=== PATIENT | female | born 1970 | race Caucasian/White ===

== ENCOUNTER 2017-08-23 02:24 | Emergency (ER) | payer OTHER ==
[~2017-08-23] VITALS: Ht 175.3 cm; Wt 124.3 kg
[~2017-08-23 02:24] MED LIST: ACCUNEB SO1.25 MG/1; ACETAMINOPHEN-1 EAC1 PO; ALBUTEROL INH INH; ALBUTEROL2.5 MG/31 IH; AMOXICILLIN/POTASSIU; AMOXICILLIN500 M1 PO; APAP/CODEINE ELI5 M1 PO; ATIVAN1 MG PO; ATROVENT15 ML NS; AUGMENTIN 875875 MG PO; AURALGAN EAR DR14 ML OT; AZITHROMYCIN 2250 MG PO; BACLOFEN 10MG T10 MG PO; BACTRIM DS TAB1 EACH PO; BENADRYL25 MG PO; BUSPIRONE HCL10 MG; BUTALB-APAP-CA1 EACH PO; CARISOPRODOL 3350 MG; CARISOPRODOL 3350 MG PO; CATAPRES-TTS 10.1 M2 TD; CELEBREX 200 M200 MG PO; CELEXA20 MG PO; CELEXA40 MG PO; CLONAZEPAM 1 MG1 M1 PO; DICLOFENAC SODI75 MG PO; DIFLUCAN150 MG PO; DOXYCYCLINE 10100 MG PO; EXALGO16 MG PO; FIORICET 50-321 EACH PO; FLAGYL500 MG PO; FLEXERIL PO; FLONASE NS; HYDROCODON-ACE1 EAC7; HYDROCODONE-AC120 ML PO; HYDROCODONE-AP1 EA14; HYDROCODONE-AP1 EAC6 PO; HYDROCODONE-APA1 TA1; IBUPROFEN 600600 M1 PO; IBUPROFEN 800800 M1 PO; IBUPROFEN 800800 MG PO; LOESTRIN 24 FE1 EACH PO; LORTAB 5 MG/5001 TA1 PO; MAXALT MLT10 MG PO; MEDROLDOSEPACK PO; MIDRIN CAPSULE1 CAP; MIRENA1 EACH IY; MS CONTIN 60 MG60 MG; MUCINEX22 ML; MULTIVITAMINS1 EAC7 PO; NAPROSYN500 MG PO; NORCO 5-325 TA1 EAC1 PO; NORCO 5-325 TA1 EACH PO; NORCO 7.5-3251 EACH; OPANA ER30 MG PO; OPANA5 MG PO; OTHER MISCELL; PHENAZOPYRIDIN200 M2 PO; PHENERGAN 25 MG25 M1; PHENERGAN 25 MG25 M1 PO; PHENERGAN25 M1 RECTAL; PREDNISONE 20 M20 M1 PO; PREDNISONE 20 M20 MG PO; PREDNISONE50 MG PO; PROMETHAZINE HC25 M1 PO; RELPAX40 MG; ROBAXIN500 MG PO; SINGULAIR; SOMA250 MG PO; SYMBICORT160 MCG/4.; SYMBICORT80 MCG/4.1 INH; TIZANIDINE HCL4 MG PO; TOPAMAX 100 MG100 MG; TOPAMAX 100 MG100 MG PO; TOPAMAX100 MG PO; TOPAMAX200 MG PO; TORADOL 10 MG T10 MG PO; TUSSIONEX PENN473 ML PO; VENTOLIN HFA 1818 GM; VICODIN 5-5001 EACH PO; XANAX 0.25 MG0.25 MG PO; XANAX 0.5 MG0.5 M1; XANAX 0.5 MG0.5 MG PO; ZANAFLEX4 MG PO; ZOFRAN ODT4 MG PO; ZOFRAN ODT4 MG SUBLING; ZOMIG2.5 M1 NS; ZPAK PO; [UNRECOGNIZED DRUG - OTHER] PO
[2017-08-23 02:35] VITALS: BP 152/93
[2017-08-23] MEDS ORDERED: PHENERGAN 25 MG25 M1 PO (02:38)
[2017-08-23] MEDS ORDERED: QVAR8.7 G1 INH (02:38)
[2017-08-23] MEDS ORDERED: CELEXA40 MG PO (02:38)
[2017-08-23] MEDS ORDERED: REQUIP0.5 MG PO (02:39)
[2017-08-23] MEDS ORDERED: ALORA1 EAC3 TOP (02:40)
== END 2017-08-23 03:04 | disposition left against medical advice (07) ==
LOC: M.ERS 02:24
DX: R51 Headache (principal); J45.909 Unspecified asthma, uncomplicated; M79.7 Fibromyalgia; F32.9 Major depressive disorder, single episode, unspecified; F17.210 Nicotine dependence, cigarettes, uncomplicated; Z90.721 Acquired absence of ovaries, unilateral; Z88.1 Allergy status to other antibiotic agents; Z88.6 Allergy status to analgesic agent

== ENCOUNTER → 2017-09-01 | Outpatient (CLI) | payer OTHER ==
[~2017-09-01] MED LIST changes: +ALORA1 EAC3 TOP; +QVAR8.7 G1 INH; +REQUIP0.5 MG PO
== END ==
LOC: M.RAD 15:16
DX: Z12.31 Encounter for screening mammogram for malignant neoplasm of breast (principal); M50.322 Other cervical disc degeneration at C5-C6 level; G44.209 Tension-type headache, unspecified, not intractable; V89.2XXA Person injured in unspecified motor-vehicle accident, traffic, initial encounter; Y93.89 Activity, other specified; Y92.89 Other specified places as the place of occurrence of the external cause; Y99.8 Other external cause status

== ENCOUNTER 2018-12-08 18:35 | Emergency (ER) | payer OTHER ==
[~2018-12-08] VITALS: Ht 175.3 cm; Wt 124.3 kg
[~2018-12-08 18:35] MED LIST changes: +CLARITIN10 MG PO; +IMITREX100 MG PO; +RANITIDINE 150150 MG PO; +REGLAN10 MG PO; +SINGULAIR 10 MG10 M1 PO; +SUMATRIPTAN
[2018-12-08] MEDS ORDERED: PHENERGAN 25 MG25 M1 PO (19:25)
[2018-12-08 19:56] VITALS: BP 133/62
== END 2018-12-08 19:56 | disposition home or self-care (01) ==
LOC: M.ERS 18:35
DX: G43.009 Migraine without aura, not intractable, without status migrainosus (principal); J45.909 Unspecified asthma, uncomplicated; M79.7 Fibromyalgia; F41.9 Anxiety disorder, unspecified; F32.9 Major depressive disorder, single episode, unspecified; F17.210 Nicotine dependence, cigarettes, uncomplicated; Z90.721 Acquired absence of ovaries, unilateral; Z90.710 Acquired absence of both cervix and uterus; Z88.5 Allergy status to narcotic agent; Z88.8 Allergy status to other drugs, medicaments and biological substances; Z88.1 Allergy status to other antibiotic agents

== ENCOUNTER 2018-12-11 23:35 | Emergency (ER) | payer OTHER ==
[~2018-12-11] VITALS: Ht 175.3 cm; Wt 124.3 kg
[2018-12-12 01:40] VITALS: BP 149/73
== END 2018-12-12 01:46 | disposition home or self-care (01) ==
LOC: M.ERS 23:35
DX: G43.909 Migraine, unspecified, not intractable, without status migrainosus (principal); J45.909 Unspecified asthma, uncomplicated; M79.7 Fibromyalgia; F32.9 Major depressive disorder, single episode, unspecified; F41.9 Anxiety disorder, unspecified; F17.210 Nicotine dependence, cigarettes, uncomplicated; Z88.1 Allergy status to other antibiotic agents; Z88.6 Allergy status to analgesic agent; Z88.8 Allergy status to other drugs, medicaments and biological substances; Z90.49 Acquired absence of other specified parts of digestive tract; Z90.721 Acquired absence of ovaries, unilateral

== ENCOUNTER 2018-12-24 21:26 | Emergency (ER) | payer OTHER ==
[~2018-12-24] VITALS: Ht 175.3 cm; Wt 124.3 kg
[2018-12-24] MEDS ORDERED: CELEXA40 MG PO (21:42)
[2018-12-24 22:16] LABS: ABSOLUTE BASOPHILS 0.1 thou/uL (0.0-0.2); ABSOLUTE EOSINOPHILS 0.7 thou/uL (0.0-0.7); ABSOLUTE LYMPHOCYTES 3.7 thou/uL (0.8-5.3); ABSOLUTE MONOCYTES 0.6 thou/uL (0.0-1.2); ABSOLUTE NEUTROPHILS 5.3 thou/uL (1.6-8.1); BASOPHILS 0.8 %; EOSINOPHILS 6.4 %; HEMATOCRIT 40.5 % (37.0-47.0); HEMOGLOBIN 13.4 gm/dL (12.0-15.0); LYMPHOCYTES 35.9 %; MCH 29.3 pg (26.0-34.0); MCHC 33.2 g/dL (28.0-37.0); MCV 88.2 fL (80.0-100.0); MONOCYTES 5.4 %; MPV 8.7 fl. (7.2-11.1); NUCLEATED RBCS 0 /100WBC; PLATELET COUNT* 187 thou/uL (150-400); POLYS 51.5 %; RBC 4.59 mil/uL (4.20-5.00); RDW-CV 14.6 % (10.5-14.5); WBC 10.2 thou/uL (4.0-11.0)
[2018-12-24 22:19] LABS: URINE BILIRUBIN NEGATIVE (Negative); URINE BLOOD NEGATIVE (Negative); URINE CLARITY CLEAR; URINE COLOR YELLOW; URINE GLUCOSE-RANDOM NEGATIVE (Negative); URINE KETONES NEGATIVE (Negative); URINE LEUKOCYTES-REFLEX NEGATIVE (Negative); URINE NITRITE-REFLEX NEGATIVE (Negative); URINE PROTEIN 1+ (Negative); URINE SPECIFIC GRAVITY >= 1.030 (1.005-1.030); URINE UROBILINOGEN 0.2 E.U./dl (0.2-1.0)
[2018-12-24 22:23] LABS: ANION GAP 10 mmol/L (7-16); BUN 16 mg/dL (7-18); CALCIUM 8.8 mg/dL (8.5-10.1); CHLORIDE 105 mmol/L (98-107); CO2 23 mmol/L (21-32); CREATININE 1.1 mg/dL (0.6-1.3); GLUCOSE 92 mg/dL (70-99); POTASSIUM 3.7 mmol/L (3.5-5.1); SODIUM 138 mmol/L (136-145)
[2018-12-24 22:32] LABS: ALBUMIN 3.5 g/dL (3.4-5.0); ALKALINE PHOSPHATASE 87 U/L (46-116); LIPASE 81 U/L (73-393); SGOT 7 U/L (15-37); SGPT 8 U/L (30-65); TOTAL BILIRUBIN 0.4 mg/dL (<0.1-1.0); TOTAL PROTEIN 7.3 g/dL (6.4-8.2); TROPONIN-I LEVEL <0.06 ng/mL (<0.06)
[2018-12-24] MEDS ORDERED: NORCO 5-325 TA1 EAC1 PO (23:32)
[2018-12-24] MEDS ORDERED: DIFLUCAN150 MG PO (23:32)
[2018-12-24 23:40] VITALS: BP 156/87
--- NOTE | 2018-12-25 11:51 | EKG ---
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
== END 2018-12-24 23:43 | disposition home or self-care (01) ==
LOC: M.ERS 21:26
PROVIDERS: Family Medicine
DX: R10.9 Unspecified abdominal pain (principal); F41.9 Anxiety disorder, unspecified; F32.9 Major depressive disorder, single episode, unspecified; M79.7 Fibromyalgia; J45.909 Unspecified asthma, uncomplicated; G43.909 Migraine, unspecified, not intractable, without status migrainosus; F17.210 Nicotine dependence, cigarettes, uncomplicated; Z98.890 Other specified postprocedural states; Z90.710 Acquired absence of both cervix and uterus; Z90.711 Acquired absence of uterus with remaining cervical stump; Z88.1 Allergy status to other antibiotic agents; Z88.6 Allergy status to analgesic agent; Z88.8 Allergy status to other drugs, medicaments and biological substances

== ENCOUNTER 2019-01-13 14:37 | Emergency (ER) | payer OTHER ==
[~2019-01-13] VITALS: Ht 175.3 cm; Wt 124.3 kg
[~2019-01-13 14:37] MED LIST changes: +REQUIP 1 MG TABL1 M1 PO; -REQUIP0.5 MG PO
[2019-01-13] MEDS ORDERED: SINGULAIR 10 MG10 M1 PO (14:57)
[2019-01-13] MEDS ORDERED: IBUPROFEN 600600 M1 PO (14:57)
[2019-01-13] MEDS ORDERED: CYMBALTA30 MG PO (14:57)
[2019-01-13 15:31] VITALS: BP 132/86
== END 2019-01-13 15:35 | disposition left against medical advice (07) ==
LOC: M.ERS 14:37
DX: G43.909 Migraine, unspecified, not intractable, without status migrainosus (principal); J45.909 Unspecified asthma, uncomplicated; M79.7 Fibromyalgia; F17.210 Nicotine dependence, cigarettes, uncomplicated; Z90.49 Acquired absence of other specified parts of digestive tract; Z90.710 Acquired absence of both cervix and uterus; Z88.1 Allergy status to other antibiotic agents; Z88.6 Allergy status to analgesic agent; Z88.8 Allergy status to other drugs, medicaments and biological substances

== ENCOUNTER 2019-06-02 01:58 | Emergency (ER) | payer OTHER ==
[~2019-06-02] VITALS: Ht 175.3 cm; Wt 107.0 kg
[~2019-06-02 01:58] MED LIST changes: +CYMBALTA30 MG PO
[2019-06-02] MEDS ORDERED: PERCOCET 10-321 EAC1 PO (02:13)
[2019-06-02 02:52] LABS: URINE BILIRUBIN NEGATIVE (Negative); URINE BLOOD NEGATIVE (Negative); URINE CLARITY CLEAR; URINE COLOR YELLOW; URINE GLUCOSE-RANDOM NEGATIVE (Negative); URINE KETONES NEGATIVE (Negative); URINE LEUKOCYTES-REFLEX NEGATIVE (Negative); URINE NITRITE-REFLEX NEGATIVE (Negative); URINE PROTEIN NEGATIVE (Negative); URINE SPECIFIC GRAVITY <= 1.005 (1.005-1.030); URINE UROBILINOGEN 0.2 E.U./dl (0.2-1.0)
[2019-06-02 03:11] LABS: AMP/METHAMP Negative (Negative); BARBITURATES Negative (Negative); BENZODIAZEPINES POSITIVE (Negative); COCAINE Negative (Negative); METHADONE Negative (Negative); OPIATES Negative (Negative); PCP Negative (Negative); THC Negative (Negative)
[2019-06-02 03:18] LABS: ABSOLUTE BASOPHILS 0.1 thou/uL (0.0-0.2); ABSOLUTE EOSINOPHILS 0.3 thou/uL (0.0-0.7); ABSOLUTE LYMPHOCYTES 3.3 thou/uL (0.8-5.3); ABSOLUTE MONOCYTES 0.6 thou/uL (0.0-1.2); ABSOLUTE NEUTROPHILS 5.2 thou/uL (1.6-8.1); BASOPHILS 0.9 %; EOSINOPHILS 2.9 %; HEMATOCRIT 39.6 % (37.0-47.0); HEMOGLOBIN 13.5 gm/dL (12.0-15.0); LYMPHOCYTES 34.9 %; MCH 30.7 pg (26.0-34.0); MCHC 34.2 g/dL (28.0-37.0); MCV 89.8 fL (80.0-100.0); MONOCYTES 6.4 %; NUCLEATED RBCS 0 /100WBC; PLATELET COUNT* 224 thou/uL (150-400); POLYS 54.9 %; RBC 4.41 mil/uL (4.20-5.00); RDW-CV 13.8 % (10.5-14.5); WBC 9.4 thou/uL (4.0-11.0)
[2019-06-02 03:27] LABS: CALCIUM 9.1 mg/dL (8.5-10.1); CREATININE 0.7 mg/dL (0.6-1.3); POTASSIUM 4.1 mmol/L (3.5-5.1)
[2019-06-02 03:32] LABS: ALBUMIN 3.6 g/dL (3.4-5.0); TOTAL BILIRUBIN 0.4 mg/dL (<0.1-1.0)
[2019-06-02] MEDS ORDERED: ZOFRAN ODT4 MG PO (05:36)
[2019-06-02] MEDS ORDERED: INDOMETHACIN 2525 MG PO (05:36)
[2019-06-02] MEDS ORDERED: FLAGYL500 M1 PO (05:37)
[2019-06-02] MEDS ORDERED: CIPROFLOXACIN500 M1 PO (05:37)
[2019-06-02 05:58] VITALS: BP 134/64
== END 2019-06-02 05:58 | disposition home or self-care (01) ==
LOC: M.ERS 01:58
PROVIDERS: Emergency Medicine
DX: K52.9 Noninfective gastroenteritis and colitis, unspecified (principal); M79.7 Fibromyalgia; J45.909 Unspecified asthma, uncomplicated; G43.909 Migraine, unspecified, not intractable, without status migrainosus; F17.210 Nicotine dependence, cigarettes, uncomplicated; Z90.710 Acquired absence of both cervix and uterus; Z90.49 Acquired absence of other specified parts of digestive tract; Z88.1 Allergy status to other antibiotic agents; Z88.8 Allergy status to other drugs, medicaments and biological substances

== ENCOUNTER 2019-06-04 07:25 | Emergency (ER) | payer OTHER ==
[~2019-06-04] VITALS: Ht 175.3 cm; Wt 107.0 kg
[~2019-06-04 07:25] MED LIST changes: +CIPROFLOXACIN500 M1 PO; +FLAGYL500 M1 PO; +INDOMETHACIN 2525 MG PO; +PERCOCET 10-321 EAC1 PO
[2019-06-04 09:23] LABS: CREATININE 0.9 mg/dL (0.6-1.3); POTASSIUM 4.3 mmol/L (3.5-5.1)
[2019-06-04 09:27] LABS: ALBUMIN 3.7 g/dL (3.4-5.0); TOTAL BILIRUBIN 0.5 mg/dL (<0.1-1.0); TOTAL PROTEIN 6.7 g/dL (6.4-8.2)
[2019-06-04] MEDS ORDERED: PERCOCET 5-3251 EACH PO (09:54)
[2019-06-04 10:11] LABS: APTT 25.9 Seconds (25.0-31.3); PROTIME 10.7 Seconds (9.20-11.50)
[2019-06-04 10:13] LABS: ABSOLUTE EOSINOPHILS 0.3 thou/uL (0.0-0.7); ABSOLUTE LYMPHOCYTES 2.9 thou/uL (0.8-5.3); ABSOLUTE MONOCYTES 0.5 thou/uL (0.0-1.2); ABSOLUTE NEUTROPHILS 4.9 thou/uL (1.6-8.1); BASOPHILS 0.6 %; HEMATOCRIT 42.2 % (37.0-47.0); HEMOGLOBIN 14.2 gm/dL (12.0-15.0); LYMPHOCYTES 33.4 %; MCH 30.7 pg (26.0-34.0); MCHC 33.7 g/dL (28.0-37.0); MONOCYTES 6.1 %; MPV 9.3 fl. (7.2-11.1); NUCLEATED RBCS 0 /100WBC; PLATELET COUNT* 202 thou/uL (150-400); POLYS 55.9 %; RBC 4.64 mil/uL (4.20-5.00); RDW-CV 13.7 % (10.5-14.5); WBC 8.7 thou/uL (4.0-11.0)
[2019-06-04 10:19] VITALS: BP 127/74
== END 2019-06-04 10:20 | disposition home or self-care (01) ==
LOC: M.ERS 07:25
PROVIDERS: Family Medicine
DX: S01.512A Laceration without foreign body of oral cavity, initial encounter (principal); G43.909 Migraine, unspecified, not intractable, without status migrainosus; J45.909 Unspecified asthma, uncomplicated; F17.210 Nicotine dependence, cigarettes, uncomplicated; Z88.6 Allergy status to analgesic agent; Z88.1 Allergy status to other antibiotic agents; Z88.8 Allergy status to other drugs, medicaments and biological substances; Z90.49 Acquired absence of other specified parts of digestive tract; W18.30XA Fall on same level, unspecified, initial encounter; Y93.E1 Activity, personal bathing and showering; Y92.89 Other specified places as the place of occurrence of the external cause; Y99.8 Other external cause status

== ENCOUNTER 2019-06-17 09:57 | Emergency (ER) | payer OTHER ==
[~2019-06-17] VITALS: Ht 175.3 cm; Wt 105.7 kg
[~2019-06-17 09:57] MED LIST changes: +PERCOCET 5-3251 EACH PO
[2019-06-17 11:21] VITALS: BP 153/99
== END 2019-06-17 11:22 | disposition home or self-care (01) ==
LOC: M.ERS 09:57
DX: G43.909 Migraine, unspecified, not intractable, without status migrainosus (principal); J45.909 Unspecified asthma, uncomplicated; M79.7 Fibromyalgia; F17.210 Nicotine dependence, cigarettes, uncomplicated; Z90.49 Acquired absence of other specified parts of digestive tract; Z88.1 Allergy status to other antibiotic agents; Z88.6 Allergy status to analgesic agent; Z88.8 Allergy status to other drugs, medicaments and biological substances

== ENCOUNTER 2019-06-22 21:58 | Emergency (ER) | payer OTHER ==
[~2019-06-22] VITALS: Ht 175.3 cm; Wt 105.7 kg
[2019-06-22 22:52] LABS: URINE BILIRUBIN NEGATIVE (Negative); URINE BLOOD NEGATIVE (Negative); URINE CLARITY CLEAR; URINE COLOR YELLOW; URINE GLUCOSE-RANDOM NEGATIVE (Negative); URINE KETONES NEGATIVE (Negative); URINE LEUKOCYTES-REFLEX NEGATIVE (Negative); URINE NITRITE-REFLEX NEGATIVE (Negative); URINE PROTEIN NEGATIVE (Negative); URINE UROBILINOGEN 0.2 E.U./dl (0.2-1.0)
[2019-06-23 00:48] LABS: ABSOLUTE BASOPHILS 0.1 thou/uL (0.0-0.2); ABSOLUTE EOSINOPHILS 0.3 thou/uL (0.0-0.7); ABSOLUTE LYMPHOCYTES 3.2 thou/uL (0.8-5.3); ABSOLUTE MONOCYTES 0.5 thou/uL (0.0-1.2); ABSOLUTE NEUTROPHILS 6.8 thou/uL (1.6-8.1); BASOPHILS 0.9 %; EOSINOPHILS 2.9 %; HEMATOCRIT 42.5 % (37.0-47.0); HEMOGLOBIN 14.5 gm/dL (12.0-15.0); LYMPHOCYTES 29.3 %; MCH 30.9 pg (26.0-34.0); MCHC 34.1 g/dL (28.0-37.0); MCV 90.6 fL (80.0-100.0); MPV 8.6 fl. (7.2-11.1); NUCLEATED RBCS 0 /100WBC; PLATELET COUNT* 254 thou/uL (150-400); POLYS 61.9 %; RBC 4.69 mil/uL (4.20-5.00); RDW-CV 13.8 % (10.5-14.5)
[2019-06-23 01:04] LABS: CALCIUM 8.8 mg/dL (8.5-10.1); CREATININE 0.9 mg/dL (0.6-1.3); POTASSIUM 4.6 mmol/L (3.5-5.1)
[2019-06-23 01:16] LABS: ALBUMIN 3.8 g/dL (3.4-5.0); TOTAL BILIRUBIN 0.5 mg/dL (<0.1-1.0); TOTAL PROTEIN 7.6 g/dL (6.4-8.2)
[2019-06-23 01:51] VITALS: BP 117/72
== END 2019-06-23 01:51 | disposition home or self-care (01) ==
LOC: M.ERS 21:58
PROVIDERS: Family Medicine; Nurse Practitioner Family
DX: R10.32 Left lower quadrant pain (principal); G43.909 Migraine, unspecified, not intractable, without status migrainosus; M79.7 Fibromyalgia; F17.210 Nicotine dependence, cigarettes, uncomplicated; Z88.1 Allergy status to other antibiotic agents; Z88.6 Allergy status to analgesic agent; Z88.8 Allergy status to other drugs, medicaments and biological substances; Z90.710 Acquired absence of both cervix and uterus; Z90.49 Acquired absence of other specified parts of digestive tract

== ENCOUNTER 2019-06-28 20:15 | Emergency (ER) | payer OTHER ==
[~2019-06-28] VITALS: Ht 175.3 cm; Wt 105.7 kg
[2019-06-28 21:09] LABS: URINE BILIRUBIN NEGATIVE (Negative); URINE BLOOD NEGATIVE (Negative); URINE CLARITY CLEAR; URINE COLOR YELLOW; URINE GLUCOSE-RANDOM NEGATIVE (Negative); URINE KETONES NEGATIVE (Negative); URINE LEUKOCYTES-REFLEX NEGATIVE (Negative); URINE NITRITE-REFLEX NEGATIVE (Negative); URINE PROTEIN NEGATIVE (Negative); URINE UROBILINOGEN 0.2 E.U./dl (0.2-1.0)
[2019-06-29] MEDS ORDERED: ZOFRAN ODT4 MG PO (03:01)
[2019-06-29 03:21] VITALS: BP 122/66
--- NOTE | 2019-06-29 11:42 | EKG ---
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1970 Requested By: Eugenia Richmond Order Number: [id number] MD: Carlos Shetty Measurements Intervals [place] Rate: 75 P: 4 [place]: 192 QRS: 15 QRSD: 87 T: 2 QT: 400 QTc: 447 Interpretive Statements Sinus rhythm Borderline low voltage, extremity leads Compared to ECG 12/24/2018 22:05:36 No significant changes Electronically Signed On 06-29-2019 11:41:42 CERTIFIED OPHTHALMIC SURGICAL ASSISTANT by Carlos Shetty [email or web address] <ELECTRONICALLY SIGNED> By: Carlos Shetty MD, [facility] 06/29/19 1141 01 01 Carlos Shetty MD, [facility] /EPI
== END 2019-06-29 03:50 | disposition still patient (30) ==
LOC: M.ERS 20:15
PROVIDERS: Nurse Practitioner Family
DX: R10.32 Left lower quadrant pain (principal); R10.31 Right lower quadrant pain; R11.2 Nausea with vomiting, unspecified; J45.909 Unspecified asthma, uncomplicated; M79.7 Fibromyalgia; G43.909 Migraine, unspecified, not intractable, without status migrainosus; F17.210 Nicotine dependence, cigarettes, uncomplicated; Z90.49 Acquired absence of other specified parts of digestive tract; Z90.710 Acquired absence of both cervix and uterus; Z88.1 Allergy status to other antibiotic agents; Z88.6 Allergy status to analgesic agent; Z88.8 Allergy status to other drugs, medicaments and biological substances

== ENCOUNTER 2019-09-17 10:32 | Emergency (ER) | payer OTHER ==
[~2019-09-17] VITALS: Ht 175.3 cm; Wt 99.8 kg
[2019-09-17] MEDS ORDERED: ZOFRAN ODT4 MG DISSOLVE (10:54)
[2019-09-17] MEDS ORDERED: ATIVAN1 M1 PO (10:54)
[2019-09-17 11:03] VITALS: BP 181/107
== END 2019-09-17 11:05 | disposition home or self-care (01) ==
LOC: M.ERS 10:32
DX: F41.9 Anxiety disorder, unspecified (principal); J45.909 Unspecified asthma, uncomplicated; G43.909 Migraine, unspecified, not intractable, without status migrainosus; M79.7 Fibromyalgia; F17.210 Nicotine dependence, cigarettes, uncomplicated; Z90.710 Acquired absence of both cervix and uterus; Z90.49 Acquired absence of other specified parts of digestive tract; Z88.1 Allergy status to other antibiotic agents; Z88.6 Allergy status to analgesic agent; Z88.8 Allergy status to other drugs, medicaments and biological substances

== ENCOUNTER 2019-10-05 14:59 | Emergency (ER) | payer OTHER ==
[~2019-10-05] VITALS: Ht 175.3 cm; Wt 99.8 kg
[~2019-10-05 14:59] MED LIST changes: +ATIVAN1 M1 PO; +ZOFRAN ODT4 MG DISSOLVE
[2019-10-05] MEDS ORDERED: SUBOXONE 8 MG-1 EAC3 SUBLING (15:08)
[2019-10-05 16:36] LABS: ABSOLUTE BASOPHILS 0.1 thou/uL (0.0-0.2); ABSOLUTE EOSINOPHILS 0.2 thou/uL (0.0-0.7); ABSOLUTE LYMPHOCYTES 2.8 thou/uL (0.8-5.3); ABSOLUTE MONOCYTES 0.6 thou/uL (0.0-1.2); ABSOLUTE NEUTROPHILS 6.4 thou/uL (1.6-8.1); BASOPHILS 0.5 %; EOSINOPHILS 1.9 %; HEMATOCRIT 39.8 % (37.0-47.0); HEMOGLOBIN 13.6 gm/dL (12.0-15.0); LYMPHOCYTES 28.3 %; MCH 30.8 pg (26.0-34.0); MCHC 34.2 g/dL (28.0-37.0); MCV 90.3 fL (80.0-100.0); MONOCYTES 5.9 %; MPV 9.4 fl. (7.2-11.1); NUCLEATED RBCS 0 /100WBC; PLATELET COUNT* 157 thou/uL (150-400); POLYS 63.4 %; RBC 4.41 mil/uL (4.20-5.00); RDW-CV 13.2 % (10.5-14.5)
[2019-10-05 16:43] LABS: CALCIUM 8.7 mg/dL (8.5-10.1); CREATININE 0.7 mg/dL (0.6-1.3); POTASSIUM 4.1 mmol/L (3.5-5.1)
[2019-10-05 16:47] LABS: ALBUMIN 3.4 g/dL (3.4-5.0); APTT 27.6 Seconds (25.0-31.3); PROTIME 10.5 Seconds (9.20-11.50); TOTAL BILIRUBIN 0.6 mg/dL (<0.1-1.0); TOTAL PROTEIN 7.4 g/dL (6.4-8.2)
[2019-10-05] MEDS ORDERED: NAPROSYN500 MG PO (17:55)
[2019-10-05] MEDS ORDERED: CARAFATE1 GM PO (17:55)
[2019-10-05 18:25] VITALS: BP 134/82
--- NOTE | 2019-10-06 14:04 | EKG ---
[place] [address] ELECTROCARDIOGRAM REPORT Name: SEJAL GREENN Room: [facility]#: [id number] Admission: 10/05/19 Attend Phys: Discharge: 10/05/19 Date of : 74 Date of Service: 10/05/19 1502 Report #: [id number] THIS REPORT FOR: //name// 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
== END 2019-10-05 18:25 | disposition home or self-care (01) ==
LOC: M.ERS 14:59
PROVIDERS: Personal Emergency Response Attendant
DX: R07.89 Other chest pain (principal); K44.9 Diaphragmatic hernia without obstruction or gangrene; K21.9 Gastro-esophageal reflux disease without esophagitis; G43.909 Migraine, unspecified, not intractable, without status migrainosus; M79.7 Fibromyalgia; J45.909 Unspecified asthma, uncomplicated; F17.210 Nicotine dependence, cigarettes, uncomplicated; Z88.1 Allergy status to other antibiotic agents; Z88.8 Allergy status to other drugs, medicaments and biological substances; Z90.710 Acquired absence of both cervix and uterus; Z90.49 Acquired absence of other specified parts of digestive tract

== ENCOUNTER 2019-12-25 19:39 | Emergency (ER) | payer OTHER ==
[~2019-12-25] VITALS: Ht 175.3 cm; Wt 95.3 kg
[~2019-12-25 19:39] MED LIST changes: +CARAFATE1 GM PO; +SUBOXONE 8 MG-1 EAC3 SUBLING
[2019-12-25 20:36] VITALS: BP 128/70
[2019-12-26] MEDS ORDERED: ZOFRAN ODT4 MG PO (05:09)
== END 2019-12-25 20:36 | disposition home or self-care (01) ==
LOC: M.ERS 19:39
DX: G43.909 Migraine, unspecified, not intractable, without status migrainosus (principal); J45.909 Unspecified asthma, uncomplicated; F17.210 Nicotine dependence, cigarettes, uncomplicated; Z90.710 Acquired absence of both cervix and uterus; Z90.49 Acquired absence of other specified parts of digestive tract; Z88.1 Allergy status to other antibiotic agents; Z88.6 Allergy status to analgesic agent; Z88.8 Allergy status to other drugs, medicaments and biological substances

== ENCOUNTER 2019-12-26 03:26 | Emergency (ER) | payer OTHER ==
[~2019-12-26] VITALS: Ht 175.3 cm; Wt 95.3 kg
[2019-12-26 04:09] LABS: HEMATOCRIT 47.1 % (37.0-47.0); HEMOGLOBIN 16.2 gm/dL (12.0-15.0); MCH 31.6 pg (26.0-34.0); MCHC 34.5 g/dL (28.0-37.0); MCV 91.7 fL (80.0-100.0); MPV 9.1 fl. (7.2-11.1); NUCLEATED RBCS 0 /100WBC; PLATELET COUNT* 168 thou/uL (150-400); RBC 5.13 mil/uL (4.20-5.00); RDW-CV 13.3 % (10.5-14.5); WBC 10.8 thou/uL (4.0-11.0)
[2019-12-26 04:28] LABS: CALCIUM 9.5 mg/dL (8.5-10.1); CREATININE 1.1 mg/dL (0.6-1.3); POTASSIUM 3.9 mmol/L (3.5-5.1)
[2019-12-26 04:30] LABS: AMP/METHAMP Negative (Negative); BARBITURATES Negative (Negative); BENZODIAZEPINES Negative (Negative); COCAINE Negative (Negative); METHADONE Negative (Negative); OPIATES Negative (Negative); PCP Negative (Negative); THC Negative (Negative); URINE BILIRUBIN NEGATIVE (Negative); URINE BLOOD NEGATIVE (Negative); URINE CLARITY CLEAR; URINE COLOR YELLOW; URINE GLUCOSE-RANDOM TRACE (Negative); URINE KETONES 1+ (Negative); URINE LEUKOCYTES-REFLEX NEGATIVE (Negative); URINE NITRITE-REFLEX NEGATIVE (Negative); URINE PROTEIN NEGATIVE (Negative); URINE SPECIFIC GRAVITY 1.025 (1.005-1.030); URINE UROBILINOGEN 0.2 E.U./dl (0.2-1.0)
[2019-12-26 04:33] LABS: ALBUMIN 3.9 g/dL (3.4-5.0); TOTAL BILIRUBIN 0.3 mg/dL (<0.1-1.0); TOTAL PROTEIN 8.2 g/dL (6.4-8.2)
[2019-12-26] MEDS ORDERED: ZOFRAN ODT4 MG PO (05:09)
[2019-12-26 05:19] LABS: ABSOLUTE LYMPHOCYTES 1.1 thou/uL (0.8-5.3); ABSOLUTE MONOCYTES 0.1 thou/uL (0.0-1.2); ABSOLUTE NEUTROPHILS 9.6 thou/uL (1.6-8.1); PLATELET ESTIMATE ADEQUATE
[2019-12-26 05:20] VITALS: BP 151/98
== END 2019-12-26 05:20 | disposition home or self-care (01) ==
LOC: M.ERS 03:26
PROVIDERS: Personal Emergency Response Attendant
DX: G43.909 Migraine, unspecified, not intractable, without status migrainosus (principal); F41.9 Anxiety disorder, unspecified; J45.909 Unspecified asthma, uncomplicated; M79.7 Fibromyalgia; F17.210 Nicotine dependence, cigarettes, uncomplicated; Z88.1 Allergy status to other antibiotic agents; Z88.6 Allergy status to analgesic agent; Z88.8 Allergy status to other drugs, medicaments and biological substances; Z90.710 Acquired absence of both cervix and uterus; Z90.49 Acquired absence of other specified parts of digestive tract; Z79.899 Other long term (current) drug therapy

== ENCOUNTER 2020-11-04 20:31 | Emergency (ER) | payer OTHER ==
[~2020-11-04] VITALS: Ht 175.3 cm; Wt 90.7 kg
[~2020-11-04 20:31] MED LIST changes: +CYMBALTA60 MG PO; +ROPINIROLE HCL0.5 MG PO
[2020-11-04 23:19] VITALS: BP 131/88
== END 2020-11-04 23:20 | disposition home or self-care (01) ==
LOC: M.ERS 20:31
DX: G43.909 Migraine, unspecified, not intractable, without status migrainosus (principal); M79.7 Fibromyalgia; F17.210 Nicotine dependence, cigarettes, uncomplicated; Z88.1 Allergy status to other antibiotic agents; Z88.6 Allergy status to analgesic agent; Z88.8 Allergy status to other drugs, medicaments and biological substances; Z90.710 Acquired absence of both cervix and uterus; Z90.49 Acquired absence of other specified parts of digestive tract

== ENCOUNTER 2021-01-17 22:12 | Emergency (ER) | payer OTHER ==
[~2021-01-17] VITALS: Ht 175.3 cm; Wt 90.7 kg
[2021-01-17 22:32] LABS: URINE BILIRUBIN NEGATIVE (Negative); URINE BLOOD NEGATIVE (Negative); URINE CLARITY CLEAR; URINE COLOR YELLOW; URINE GLUCOSE-RANDOM NEGATIVE (Negative); URINE KETONES TRACE (Negative); URINE LEUKOCYTES-REFLEX NEGATIVE (Negative); URINE NITRITE-REFLEX NEGATIVE (Negative); URINE PROTEIN NEGATIVE (Negative); URINE SPECIFIC GRAVITY >= 1.030 (1.005-1.030)
[2021-01-17 22:44] LABS: AMP/METHAMP Negative (Negative); BARBITURATES Negative (Negative); BENZODIAZEPINES POSITIVE (Negative); COCAINE Negative (Negative); METHADONE Negative (Negative); OPIATES Negative (Negative); PCP Negative (Negative); THC Negative (Negative)
[2021-01-17 23:19] LABS: ABSOLUTE BASOPHILS 0.1 thou/uL (0.0-0.2); ABSOLUTE EOSINOPHILS 0.3 thou/uL (0.0-0.7); ABSOLUTE LYMPHOCYTES 2.9 thou/uL (0.8-5.3); ABSOLUTE MONOCYTES 0.6 thou/uL (0.0-1.2); ABSOLUTE NEUTROPHILS 6.4 thou/uL (1.6-8.1); BASOPHILS 0.6 %; EOSINOPHILS 3.2 %; HEMATOCRIT 39.5 % (37.0-47.0); HEMOGLOBIN 13.7 gm/dL (12.0-15.0); MCH 32.6 pg (26.0-34.0); MCHC 34.6 g/dL (28.0-37.0); MCV 94.3 fL (80.0-100.0); MONOCYTES 5.8 %; MPV 7.6 fl. (7.2-11.1); NUCLEATED RBCS 0 /100WBC; PLATELET COUNT* 270 thou/uL (150-400); POLYS 62.4 %; RBC 4.19 mil/uL (4.20-5.00); RDW-CV 13.2 % (10.5-14.5); WBC 10.3 thou/uL (4.0-11.0)
[2021-01-17 23:25] LABS: CREATININE 0.7 mg/dL (0.6-1.3)
[2021-01-17 23:30] LABS: ALBUMIN 3.7 g/dL (3.4-5.0); TOTAL BILIRUBIN 0.3 mg/dL (<0.1-1.0); TOTAL PROTEIN 6.9 g/dL (6.4-8.2)
[2021-01-18] MEDS ORDERED: FLAGYL500 M1 PO (01:40)
[2021-01-18 01:44] VITALS: BP 140/68
== END 2021-01-18 01:44 | disposition home or self-care (01) ==
LOC: M.ERS 22:12
PROVIDERS: Emergency Medicine
DX: R10.32 Left lower quadrant pain (principal); R11.2 Nausea with vomiting, unspecified; G43.909 Migraine, unspecified, not intractable, without status migrainosus; J45.909 Unspecified asthma, uncomplicated; M79.7 Fibromyalgia; F17.210 Nicotine dependence, cigarettes, uncomplicated; Z88.1 Allergy status to other antibiotic agents; Z88.8 Allergy status to other drugs, medicaments and biological substances; Z79.899 Other long term (current) drug therapy; Z90.710 Acquired absence of both cervix and uterus

== ENCOUNTER 2021-01-26 20:53 | Emergency (ER) | payer OTHER ==
[~2021-01-26] VITALS: Ht 175.3 cm; Wt 90.3 kg
[2021-01-26 21:10] LABS: URINE BILIRUBIN NEGATIVE (Negative); URINE BLOOD NEGATIVE (Negative); URINE CLARITY CLEAR; URINE COLOR YELLOW; URINE GLUCOSE-RANDOM NEGATIVE (Negative); URINE KETONES NEGATIVE (Negative); URINE LEUKOCYTES-REFLEX NEGATIVE (Negative); URINE NITRITE-REFLEX NEGATIVE (Negative); URINE PROTEIN NEGATIVE (Negative); URINE UROBILINOGEN 0.2 E.U./dl (0.2-1.0)
[2021-01-26] MEDS ORDERED: PROMS25 WY RECTAL (21:45)
[2021-01-26] MEDS ORDERED: LOPERAMIDE 2 MG2 M1 PO (21:45)
[2021-01-26 21:53] LABS: ABSOLUTE BASOPHILS 0.1 thou/uL (0.0-0.2); ABSOLUTE EOSINOPHILS 0.3 thou/uL (0.0-0.7); ABSOLUTE LYMPHOCYTES 1.8 thou/uL (0.8-5.3); ABSOLUTE MONOCYTES 0.6 thou/uL (0.0-1.2); BASOPHILS 0.8 %; EOSINOPHILS 3.8 %; HEMATOCRIT 40.6 % (37.0-47.0); HEMOGLOBIN 13.6 gm/dL (12.0-15.0); LYMPHOCYTES 23.8 %; MCH 31.7 pg (26.0-34.0); MCHC 33.4 g/dL (28.0-37.0); MCV 94.8 fL (80.0-100.0); MONOCYTES 7.6 %; NUCLEATED RBCS 0 /100WBC; PLATELET COUNT* 248 thou/uL (150-400); RBC 4.29 mil/uL (4.20-5.00); RDW-CV 13.1 % (10.5-14.5); WBC 7.7 thou/uL (4.0-11.0)
[2021-01-26 21:59] LABS: CALCIUM 8.7 mg/dL (8.5-10.1); CREATININE 0.8 mg/dL (0.6-1.3); POTASSIUM 4.1 mmol/L (3.5-5.1)
[2021-01-26 22:04] LABS: ALBUMIN 3.4 g/dL (3.4-5.0); TOTAL BILIRUBIN 0.2 mg/dL (<0.1-1.0); TOTAL PROTEIN 6.5 g/dL (6.4-8.2)
[2021-01-26 22:19] VITALS: BP 117/80
== END 2021-01-26 22:19 | disposition home or self-care (01) ==
LOC: M.ERS 20:53
PROVIDERS: Physician Assistant
DX: R10.32 Left lower quadrant pain (principal); R11.10 Vomiting, unspecified; G43.909 Migraine, unspecified, not intractable, without status migrainosus; M79.7 Fibromyalgia; J45.909 Unspecified asthma, uncomplicated; F32.9 Major depressive disorder, single episode, unspecified; F41.9 Anxiety disorder, unspecified; F17.210 Nicotine dependence, cigarettes, uncomplicated; Z90.711 Acquired absence of uterus with remaining cervical stump; Z90.49 Acquired absence of other specified parts of digestive tract; Z79.899 Other long term (current) drug therapy; Z88.1 Allergy status to other antibiotic agents; Z88.8 Allergy status to other drugs, medicaments and biological substances

== ENCOUNTER 2021-02-11 21:19 | Emergency (ER) | payer OTHER ==
[~2021-02-11] VITALS: Ht 175.3 cm; Wt 90.3 kg
[~2021-02-11 21:19] MED LIST changes: +LOPERAMIDE 2 MG2 M1 PO; +PROMS25 WY RECTAL
[2021-02-11 23:01] LABS: URINE BILIRUBIN NEGATIVE (Negative); URINE BLOOD NEGATIVE (Negative); URINE CLARITY CLEAR; URINE COLOR YELLOW; URINE GLUCOSE-RANDOM NEGATIVE (Negative); URINE KETONES TRACE (Negative); URINE LEUKOCYTES-REFLEX NEGATIVE (Negative); URINE NITRITE-REFLEX NEGATIVE (Negative); URINE PROTEIN NEGATIVE (Negative); URINE UROBILINOGEN 0.2 E.U./dl (0.2-1.0)
[2021-02-11 23:10] LABS: AMP/METHAMP Negative (Negative); BARBITURATES Negative (Negative); BENZODIAZEPINES Negative (Negative); COCAINE Negative (Negative); METHADONE Negative (Negative); OPIATES Negative (Negative); PCP Negative (Negative); THC Negative (Negative)
[2021-02-11 23:14] LABS: HEMATOCRIT 41.2 % (37.0-47.0); HEMOGLOBIN 13.7 gm/dL (12.0-15.0); MCH 31.6 pg (26.0-34.0); MCHC 33.2 g/dL (28.0-37.0); MCV 95.1 fL (80.0-100.0); MPV 7.3 fl. (7.2-11.1); RBC 4.33 mil/uL (4.20-5.00); RDW-CV 13.6 % (10.5-14.5)
[2021-02-12 00:01] LABS: CALCIUM 8.7 mg/dL (8.5-10.1); CREATININE 0.8 mg/dL (0.6-1.3)
[2021-02-12 00:06] LABS: ALBUMIN 3.8 g/dL (3.4-5.0); TOTAL BILIRUBIN 0.3 mg/dL (<0.1-1.0); TOTAL PROTEIN 7.3 g/dL (6.4-8.2)
[2021-02-12] MEDS ORDERED: ATIVAN1 M1 PO (00:13)
[2021-02-12 00:23] VITALS: BP 150/75
== END 2021-02-12 00:23 | disposition home or self-care (01) ==
LOC: M.ERS 21:19
PROVIDERS: Personal Emergency Response Attendant
DX: F11.13 Opioid abuse with withdrawal (principal); G43.909 Migraine, unspecified, not intractable, without status migrainosus; J45.909 Unspecified asthma, uncomplicated; M79.7 Fibromyalgia; F17.210 Nicotine dependence, cigarettes, uncomplicated; Z90.89 Acquired absence of other organs; Z90.49 Acquired absence of other specified parts of digestive tract; Z90.710 Acquired absence of both cervix and uterus; Z88.1 Allergy status to other antibiotic agents